=== PATIENT | female | born 1940 | race Caucasian/White ===

== ENCOUNTER 2022-02-24 14:17 | Emergency (ER) | payer MEDICARE ==
[~2022-02-24] VITALS: Ht 152.4 cm; Wt 45.9 kg
[2022-02-24 14:30] VITALS: BP 180/62
== END 2022-02-24 19:29 | disposition home or self-care (01) ==
LOC: ER 14:18
DX: S63.114A Dislocation of metacarpophalangeal joint of right thumb, initial encounter (principal); M79.644 Pain in right finger(s); E78.00 Pure hypercholesterolemia, unspecified; I10 Essential (primary) hypertension; M06.9 Rheumatoid arthritis, unspecified; Z72.89 Other problems related to lifestyle; Z98.890 Other specified postprocedural states; Z88.8 Allergy status to other drugs, medicaments and biological substances; Z88.2 Allergy status to sulfonamides; Z88.1 Allergy status to other antibiotic agents; X50.0XXA Overexertion from strenuous movement or load, initial encounter; Y93.89 Activity, other specified; Y92.89 Other specified places as the place of occurrence of the external cause; Y99.8 Other external cause status
CPT/HCPCS: 29125; 73110; 73130; 99284